=== PATIENT | male | born 1940 | race Caucasian/White ===

== ENCOUNTER 2022-09-20 08:16 | Observation (INO) ==
[~2022-09-20 08:16] MED LIST: Buffered Lidocaine 1% SYRIN 1 ml INTRADERM ONE; Lactated Ringers 1000 ml BAG 1,000 ML IV SCH
[2022-09-20] MEDS ORDERED: ceFAZolin 2 GM in NS PREMIX 2 GM/100 ML BAG IVPB ONE (08:39)
[2022-09-20] MEDS ORDERED: Midazolam 2 mg/2 ml VIAL 1 mg/ml 2 ml VIAL (2 mg) ONE (08:44)
[2022-09-20] MEDS ORDERED: Lidocaine 2% PF 5 ML VIAL ONE (08:46)
[2022-09-20 08:51] LABS: INR 1.02 (0.89-1.11)
[2022-09-20] MEDS ORDERED: Propofol 10 MG/ML 20 ML BTL ONE ×2 (09:53→12:09)
[2022-09-20] MEDS ORDERED: fentaNYL 100 mcg/2 ml 50 MCG/ML VIAL ONE ×2 (09:56→14:04)
[2022-09-20] MEDS ORDERED: ROPIVACAINE 5 MG/ML 30 ML BTL (0.5%) ONE (10:16)
[2022-09-20] MEDS ORDERED: HYDROmorphone 1 MG/1 ML SYRINGE IV PRN (10:53)
[2022-09-20] MEDS ORDERED: Acetaminophen IV 1 GM/100ML 1,000 MG/100 ML BAG IV PRN (10:53)
[2022-09-20] MEDS ORDERED: Ondansetron 4 mg VIAL 2 MG/ML 2 ml VIAL IV PRN ×2 (10:53→11:52)
[2022-09-20] MEDS ORDERED: Naloxone 0.4 mg VIAL 0.4 mg/ml 1 ml VIAL IV PRN (10:53)
[2022-09-20] MEDS ORDERED: Ropivacaine 5 MG/ML 20 ML VIAL 0.5% (100 MG) ONE (11:08)
[2022-09-20] MEDS ORDERED: Ondansetron 4 mg VIAL 2 MG/ML 2 ml VIAL ONE (11:23)
[2022-09-20] MEDS ORDERED: Dexamethasone IV 4 MG/ML VIAL 1 ml VIAL ONE (11:23)
[2022-09-20] MEDS ORDERED: Lactulose 30 ml UDC PO PRN (11:52)
[2022-09-20] MEDS ORDERED: Ondansetron ODT 4 mg TAB 4 MG TAB PO PRN (11:52)
[2022-09-20] MEDS ORDERED: Morphine 2 MG/ML SYRINGE IV PRN (11:52)
[2022-09-20] MEDS ORDERED: Magnesium Hydroxide LIQ 30 ML UDC PO PRN (11:52)
[2022-09-20] MEDS ORDERED: Lactated Ringers 1000 ml BAG 1,000 ML IV SCH (12:00)
[2022-09-20] MEDS ORDERED: Phenylephrine IV 10 MG/ML 1 ml VIAL ONE (12:11)
[2022-09-20] MEDS ORDERED: Metoprolol Tartrate 5 mg VIAL 5 ml VIAL (1 mg/ml) ONE (13:06)
[2022-09-20] MEDS: fentaNYL 100 mcg/2 ml 50 MCG/ML VIAL IV PRN ×3 (14:06→14:33)
[2022-09-20] MEDS ORDERED: Dextrose 50% Syringe 50 ml 25 GM/50 ML SYRINGE IV PUSH PRN (14:41)
[2022-09-20] MEDS: ceFAZolin 1 GM ADVAN 1 GM in NS 0.9% 50 ML 50 ML IVPB SCH (20:23)
[2022-09-20] MEDS: Magnesium Hydroxide LIQ 30 ML UDC PO SCH (20:29)
[2022-09-21] MEDS: ceFAZolin 1 GM ADVAN 1 GM in NS 0.9% 50 ML 50 ML IVPB SCH ×2 (02:56→11:15)
[2022-09-21 05:58] LABS: Hematocrit 35 % (42-52); Mean Platelet Volume 10.6 fL (7.4-10.4); Platelet Count 193 10^3/uL (150-450)
[2022-09-21 06:28] LABS: Calcium 8.8 mg/dL (8.6-10.3); Potassium 4.1 mmol/L (3.5-5.0); eGFR CKD-EPI 68.9 (>60)
[2022-09-21] MEDS: Magnesium Hydroxide LIQ 30 ML UDC PO SCH (08:34)
[2022-09-21] MEDS ORDERED: Vitamin THERAPEUTIC TAB PO SCH (09:00)
[2022-09-21 14:32] VITALS: BP 106/54
== END 2022-09-21 12:45 | disposition home or self-care (01) ==
LOC: INTOOBSV 08:16 → AA 08:16 → SSU 17:01
PROVIDERS: ADMIT Orthopaedic Surgery Adult Reconstructive Orthopaedic Surgery; ATTEND Orthopaedic Surgery Adult Reconstructive Orthopaedic Surgery